=== PATIENT | female | born 1970 | race American Indian/Alaskan Native ===

== ENCOUNTER 2018-01-21 17:09 | Emergency (ER) | payer SELFPAY ==
[2018-01-21 17:28] VITALS: BP 152/84
[2018-01-21] MEDS ORDERED: TYLENOL PO ONE (21:02)
[2018-01-21] MEDS ORDERED: DELTASONE PO ONE (21:02)
[2018-01-21] MEDS ORDERED: REGLAN PO ONE (21:02)
--- NOTE | 2018-01-21 21:07 | Emergency Department Report ---
ED Headache HPI - General Chief Complaint: Headache Stated Complaint: SEVERE MIGRANE Time Seen by Provider: 01/21/18 21:01 - History of Present Illness Initial Comments: 48-year-old Afro[place] female states she fell off of a ground-level deck on Saturday striking her head on the house siding was no LOC patient was immediately ambulatory after incident patient did not seek care the day of accident as she had no pain was no laceration or abrasion no bleeding now presents for headache occipital and soreness there is no swelling no edema no nausea vomiting no blurred vision there is mild photophobia patient is amateur to baseline per patient stay there is been no fever no nosebleed no hemoptysis Timing/Duration: other (3 days) Quality: moderate Head Injury Location: occipital Recent Head Trauma: head trauma > 24 hrs ago Modifying Factors: improves with: rest Associated Symptoms: other (mild photophobia ) Allergies/Adverse Reactions: Allergies No Known Allergies Allergy (Verified 04/22/16 08:24) Home Medications: Ambulatory Orders Dicyclomine [Bentyl] 10 mg PO QID PRN #20 capsule 04/28/16 Famotidine [Pepcid] 20 mg PO QDAY #30 04/28/16 Ondansetron [Zofran Odt] 4 mg PO QID PRN #20 tab.rapdis 04/28/16 Acetaminophen [Acetaminophen TAB] 1,000 mg PO ONCE PRN #30 tablet 01/21/18 Metoclopramide [Reglan TAB] 10 mg PO QID PRN #30 tablet 01/21/18 predniSONE [Deltasone] 40 mg PO ONCE 5 Days #10 tablet 01/21/18 ED Review of Systems ROS: Stated complaint: SEVERE MIGRANE Other details as noted in HPI Constitutional: denies: chills, fever Eyes: denies: eye pain, eye discharge, vision change ENT: denies: ear pain, throat pain Respiratory: denies: cough, shortness of breath, wheezing Cardiovascular: denies: chest pain, palpitations Endocrine: no symptoms reported Gastrointestinal: denies: abdominal pain, nausea, diarrhea Genitourinary: denies: urgency, dysuria, discharge Musculoskeletal: denies: back pain, joint swelling, arthralgia Skin: denies: rash, lesions Neurological: as per HPI, headache. denies: weakness, numbness, paresthesias, confusion, abnormal gait, vertigo Psychiatric: denies: anxiety, depression Hematological/Lymphatic: denies: easy bleeding, easy bruising ED Past Medical Hx - Past Medical History Hx Hypertension: Yes (with preg) Additional medical history: ulcers - Surgical History Additional Surgical History: gastric bypass 06/2011. c/s x 1 - Social History Smoking Status: Never Smoker Substance Use Type: Alcohol - Medications Home Medications: Home Medications Medication Instructions Recorded Confirmed Last Taken Type Dicyclomine [Bentyl] 10 mg PO QID PRN #20 capsule 04/28/16 Unknown Rx Famotidine [Pepcid] 20 mg PO QDAY #30 04/28/16 Unknown Rx Ondansetron [Zofran Odt] 4 mg PO QID PRN #20 tab.rapdis 04/28/16 Unknown Rx Acetaminophen [Acetaminophen TAB] 1,000 mg PO ONCE PRN #30 tablet 01/21/18 Unknown Rx Metoclopramide [Reglan TAB] 10 mg PO QID PRN #30 tablet 01/21/18 Unknown Rx predniSONE [Deltasone] 40 mg PO ONCE 5 Days #10 tablet 01/21/18 Unknown Rx ED Physical Exam - General Limitations: No Limitations General appearance: alert, in no apparent distress - Head Head exam: Present: normocephalic, normal inspection - Expanded Head Exam Expanded Head exam: Absent: laceration, abrasion, contusion, hematoma, racoon eyes, gambino's sign, general tenderness, tenderness of temporal artery, CSF rhinorrhea - Eye Eye exam: Present: normal appearance, PERRL, EOMI. Absent: conjunctival injection, nystagmus, periorbital swelling, periorbital tenderness Pupils: Present: normal accommodation - Expanded Eye Exam Expanded Eyelids: Normal Inspection: Left Pupils: Regular, Round: Bilateral, Reactive: Bilateral Sclera/Conjunctival: Normal Inspection: Bilateral Anterior chamber: Normal Inspection: Bilateral Visual acuity (R) = 20/: 30 Visual acuity (L) = 20/: 30 - ENT ENT exam: Present: normal orophraynx, mucous membranes moist, TM's normal bilaterally, normal external ear exam - Neck Neck exam: Present: normal inspection, full ROM. Absent: tenderness, meningismus, lymphadenopathy, thyromegaly - Respiratory Respiratory exam: Present: normal lung sounds bilaterally. Absent: respiratory distress - Cardiovascular Cardiovascular Exam: Present: regular rate, normal rhythm. Absent: systolic murmur, diastolic murmur, rubs, gallop - GI/Abdominal GI/Abdominal exam: Present: soft, normal bowel sounds - Rectal Rectal exam: Present: deferred - Extremities Exam Extremities exam: Present: normal inspection - Back Exam Back exam: Present: normal inspection - Neurological Exam Neurological exam: Present: alert, oriented X3, CN II-XII intact, normal gait, reflexes normal. Absent: motor sensory deficit - Psychiatric Psychiatric exam: Present: normal affect, normal mood - Skin Skin exam: Present: warm, dry, intact, normal color. Absent: rash ED Course Vital Signs 01/21/18 17:24 Temperature 98.5 F Pulse Rate 78 Respiratory 16 Rate Blood Pressure 152/84 O2 Sat by Pulse 100 Oximetry ED Medical Decision Making - Medical Decision Making This is a status post minor head injury there is no swelling or abrasion no laceration or hematoma no crepitus no step-off no posterior lateral neck pain it is supple neck is supple range of motion is intact without restriction patient's PERRLA EOMI conjunctivae are clear there is no nosebleed no oral blood no ear canal blood patient states pain is 4/10 aching exacerbated by movement and palpation relief by rest patient is A/O 3 and a toilet steady gait plan Tylenol Reglan Benadryl when necessary headache follow with PCP in 2- 3 days return to ED should symptoms worsen I nausea vomiting blurred vision had swelling patient verbalized understanding and agreement was signed will be DC'd home in stable condition at this time Critical care attestation.: If time is entered above; I have spent that time in minutes in the direct care of this critically ill patient, excluding procedure time. ED Disposition Clinical Impression: Headache Qualifiers: Headache type: unspecified Headache chronicity pattern: acute headache Intractability: not intractable Qualified Code(s): R51 - Headache Minor head injury without loss of consciousness Qualifiers: Encounter type: initial encounter Qualified Code(s): S09.90XA - Unspecified injury of head, initial encounter Disposition: DC-01 TO HOME OR SELFCARE Is pt being admited?: No Does the pt Need Aspirin: No Condition: Good Instructions: Minor Head Injury (ED), Acute Headache (ED) Prescriptions: Acetaminophen [Acetaminophen TAB] 1,000 mg PO ONCE PRN #30 tablet PRN Reason: Headache Metoclopramide [Reglan TAB] 10 mg PO QID PRN #30 tablet PRN Reason: Headache predniSONE [Deltasone] 40 mg PO ONCE 5 Days #10 tablet Referrals: PRIMARY CARE,MD [Primary Care Provider] - 3-5 Days Forms: Work/School Release Form(ED) Time of Disposition: 21:14
== END 2018-01-21 21:24 | disposition home or self-care (01) ==
LOC: ED 17:09
DX: S09.90XA Unspecified injury of head, initial encounter (principal); I10 Essential (primary) hypertension; Z79.899 Other long term (current) drug therapy; W17.89XA Other fall from one level to another, initial encounter; Y93.89 Activity, other specified; Y99.8 Other external cause status; Y92.89 Other specified places as the place of occurrence of the external cause
CPT/HCPCS: 99282; J7512

== ENCOUNTER 2020-09-17 23:45 | Emergency (ER) | payer SELFPAY ==
--- NOTE | 2020-09-18 04:08 | Emergency Department Report ---
ED ENT HPI - General Chief complaint: Dental/Oral Stated complaint: MOUTH PAIN/SWOLLEN JAW Time Seen by Provider: 09/18/20 03:53 Source: patient Mode of arrival: Ambulatory Limitations: No Limitations - History of Present Illness Initial comments: Patient is a 50-year-old female presents emergency room with complaints of left upper dental pain that began 3 days ago. She states that she has not seen a dentist in approximately 3 years. She states that she was advised she had cavities at that time. She states that she has noticed a small amount of s welling to the face. She states that it is causing her to have sore throat and ear pain. She denies any fever, nausea, vomiting, diarrhea, difficulty swallowing, difficulty breathing. She has a past medical history of hypertension, she has not seen a primary care doctor in 3 years, she states she believes she was previously on some medication before but does not know what the name was. No allergies to medications. She is postmenopausal. - Related Data Previous Rx's Medication Instructions Recorded Last Taken Type Dicyclomine [Bentyl] 10 mg PO QID PRN #20 capsule 04/28/16 Unknown Rx Famotidine [Pepcid] 20 mg PO QDAY #30 04/28/16 Unknown Rx Ondansetron [Zofran Odt] 4 mg PO QID PRN #20 tab.rapdis 04/28/16 Unknown Rx Acetaminophen [Acetaminophen TAB] 1,000 mg PO ONCE PRN #30 tablet 01/21/18 Unknown Rx Metoclopramide [Reglan TAB] 10 mg PO QID PRN #30 tablet 01/21/18 Unknown Rx predniSONE [Deltasone] 40 mg PO ONCE 5 Days #10 tablet 01/21/18 Unknown Rx Chlorhexidine Mouthwash [Peridex] 15 ml MM BID #1 bottle 09/18/20 Unknown Rx Naproxen [EC-Naprosyn] 500 mg PO BID PRN #14 tablet. 09/18/20 Unknown Rx Penicillin Vk [Veetids TAB] 500 mg PO QID 7 Days #56 tablet 09/18/20 Unknown Rx amLODIPine 10 mg PO DAILY #30 tab 09/18/20 Unknown Rx Allergies Allergy/AdvReac Type Severity Reaction Status Date / Time No Known Allergies Allergy Verified 04/22/16 08:24 ED Dental HPI - General Chief complaint: Dental/Oral Stated complaint: MOUTH PAIN/SWOLLEN JAW Time Seen by Provider: 09/18/20 03:53 Source: patient Mode of arrival: Ambulatory Limitations: No Limitations - Related Data Previous Rx's Medication Instructions Recorded Last Taken Type Dicyclomine [Bentyl] 10 mg PO QID PRN #20 capsule 04/28/16 Unknown Rx Famotidine [Pepcid] 20 mg PO QDAY #30 04/28/16 Unknown Rx Ondansetron [Zofran Odt] 4 mg PO QID PRN #20 tab.rapdis 04/28/16 Unknown Rx Acetaminophen [Acetaminophen TAB] 1,000 mg PO ONCE PRN #30 tablet 01/21/18 Unknown Rx Metoclopramide [Reglan TAB] 10 mg PO QID PRN #30 tablet 01/21/18 Unknown Rx predniSONE [Deltasone] 40 mg PO ONCE 5 Days #10 tablet 01/21/18 Unknown Rx Chlorhexidine Mouthwash [Peridex] 15 ml MM BID #1 bottle 09/18/20 Unknown Rx Naproxen [EC-Naprosyn] 500 mg PO BID PRN #14 tablet. 09/18/20 Unknown Rx Penicillin Vk [Veetids TAB] 500 mg PO QID 7 Days #56 tablet 09/18/20 Unknown Rx amLODIPine 10 mg PO DAILY #30 tab 09/18/20 Unknown Rx Allergies Allergy/AdvReac Type Severity Reaction Status Date / Time No Known Allergies Allergy Verified 04/22/16 08:24 ED Review of Systems ROS: Stated complaint: MOUTH PAIN/SWOLLEN JAW Other details as noted in HPI Comment: All other systems reviewed and negative ED Past Medical Hx - Past Medical History Previous Medical History?: Yes Hx Hypertension: Yes (with preg) Additional medical history: ulcers - Surgical History Past Surgical History?: Yes Additional Surgical History: gastric bypass 06/2011. c/s x 1 - Social History Smoking Status: Never Smoker Substance Use Type: None - Medications Home Medications: Home Medications Medication Instructions Recorded Confirmed Last Taken Type Dicyclomine [Bentyl] 10 mg PO QID PRN #20 capsule 04/28/16 Unknown Rx Famotidine [Pepcid] 20 mg PO QDAY #30 04/28/16 Unknown Rx Ondansetron [Zofran Odt] 4 mg PO QID PRN #20 tab.rapdis 04/28/16 Unknown Rx Acetaminophen [Acetaminophen TAB] 1,000 mg PO ONCE PRN #30 tablet 01/21/18 Unknown Rx Metoclopramide [Reglan TAB] 10 mg PO QID PRN #30 tablet 01/21/18 Unknown Rx predniSONE [Deltasone] 40 mg PO ONCE 5 Days #10 tablet 01/21/18 Unknown Rx Chlorhexidine Mouthwash [Peridex] 15 ml MM BID #1 bottle 09/18/20 Unknown Rx Naproxen [EC-Naprosyn] 500 mg PO BID PRN #14 tablet. 09/18/20 Unknown Rx Penicillin Vk [Veetids TAB] 500 mg PO QID 7 Days #56 tablet 09/18/20 Unknown Rx amLODIPine 10 mg PO DAILY #30 tab 09/18/20 Unknown Rx ED Physical Exam - General Limitations: No Limitations General appearance: alert, in no apparent distress - Head Head exam: Present: atraumatic, normocephalic - Eye Eye exam: Present: normal appearance - ENT ENT exam: Present: normal orophraynx (No trismus, no muffled voice, no submandibular edema), mucous membranes moist, TM's normal bilaterally, normal external ear exam, other (very poor dentition, multiple areas of dental carries/dental decay and missing teeth, there is a prostetic device in place, there is induration of the left upper gumline where several carries are present, there is trace edema of the left upper face, uvula is midline, no uvular edema or deviation) - Respiratory Respiratory exam: Absent: respiratory distress, accessory muscle use - Neurological Exam Neurological exam: Present: alert, oriented X3 - Psychiatric Psychiatric exam: Present: normal affect, normal mood - Skin Skin exam: Present: warm, dry, intact ED Course Vital Signs 09/18/20 09/18/20 02:21 04:44 Temperature 98.3 F 98.2 F Pulse Rate 84 78 Respiratory 18 16 Rate Blood Pressure 188/109 Blood Pressure 190/105 [Left] O2 Sat by Pulse 100 99 Oximetry ED Medical Decision Making - Lab Data Vital Signs 09/18/20 09/18/20 02:21 04:44 Temperature 98.3 F 98.2 F Pulse Rate 84 78 Respiratory 18 16 Rate Blood Pressure 188/109 Blood Pressure 190/105 [Left] O2 Sat by Pulse 100 99 Oximetry - Medical Decision Making Patient is a 50-year-old female presents emergency room with complaints of left upper dental pain that began 3 days ago. She states that she has not seen a dentist in approximately 3 years. She states that she was advised she had cavities at that time. She states that she has noticed a small amount of swelling to the face. She states that it is causing her to have sore throat and ear pain. She denies any fever, nausea, vomiting, diarrhea, difficulty swallowing, difficulty breathing. She has a past medical history of hypertension, she has not seen a primary care doctor in 3 years, she states she believes she was previously on some medication before but does not know what the name was. No allergies to medications. She is postmenopausal. Vitals with elevated blood pressure, otherwise vitals are normal. Patient has history of chronic hypertension has not been on medications for 3 years, she does not know what she previously took. Patient is not having any symptoms related to her elevated blood pressure, she is asymptomatic. The up-to-date medical literature does not recommend emergently lowering asymptomatic elevated blood pressure. Patient will be given a prescription for 5 mg of amlodipine, discussed the importance of primary care follow-up, discussed low-sodium diet, discussed increasing water intake, discussed exercise and weight management discussed to keep blood pressure log and take this to the primary care doctor. On exam:very poor dentition, multiple areas of dental carries/dental decay and missing teeth, there is a prostetic device in place, there is induration of the left upper gumline where several carries are present, there is trace edema of the left upper face, uvula is midline, no uvular edema or deviation, No trismus, no muffled voice, no submandibular edema. Symptoms and examination appear consistent with dental caries and dental abscess. No clinical signs of facial cellulitis, facial abscess, Mario Alberto's at this time. Patient given prescription for naproxen, chlorhexidine mouthwash, penicillin VK. Advised patient Please take medication as prescribed. Gargle with warm salt water. Increase your water intake. Follow-up with a dentist. Follow-up with your primary care doctor regarding elevation in your blood pressure. Keep a blood pressure log and take this to the primary care doctor. Eat a low-sodium diet. Incorporate 30 to 60 minutes of daily exercise and consider weight management. Return to emergency room for any new or worsening symptoms. Critical care attestation.: If time is entered above; I have spent that time in minutes in the direct care of this critically ill patient, excluding procedure time. ED Disposition Clinical Impression: Dental caries, Dental abscess, Dentalgia, Non compliance w medication regimen Hypertension Qualifiers: Hypertension type: essential hypertension Qualified Code(s): I10 - Essential (primary) hypertension Disposition: TO HOME OR SELFCARE Is pt being admited?: No Does the pt Need Aspirin: No Condition: Stable Instructions: Dental Abscess, [id number], Low-Sodium Eating Plan, Managing Your Hypertension, Hypertension (ED) Additional Instructions: Please take medication as prescribed. Gargle with warm salt water. Increase your water intake. Follow-up with a dentist. Follow-up with your primary care doctor regarding elevation in your blood pressure. Keep a blood pressure log and take this to the primary care doctor. Eat a low-sodium diet. Incorporate 30 to 60 minutes of daily exercise and consider weight management. Return to emergency room for any new or worsening symptoms. Prescriptions: amLODIPine 10 mg PO DAILY #30 tab Naproxen [EC-Naprosyn] 500 mg PO BID PRN #14 tablet.dr ACOSTA Reason: pain Chlorhexidine Mouthwash [Peridex] 15 ml MM BID #1 bottle Penicillin Vk [Veetids TAB] 500 mg PO QID 7 Days #56 tablet Referrals: PRIMARY CAREMD [Primary Care Provider] - 3-5 Days AZUL BLACKBURN MD [Staff Physician] - 3-5 Days [facility] [Provider Group] - 3-5 Days [facility] [Outside] - 3-[address] [facility] [Outside] - 3-5 Days [facility] [Outside] - 3-5 Days [facility], [LAB/CONTRACT] - 3-5 Days [facility] [Outside] - 3-5 Days Forms: Work/School Release Form(ED) Time of Disposition: 04:07 Print Language: ANDORRAN
[2020-09-18 05:52] VITALS: BP 190/105
== END 2020-09-18 04:49 | disposition home or self-care (01) ==
LOC: ED 23:45
DX: K02.9 Dental caries, unspecified (principal); K04.7 Periapical abscess without sinus; K08.89 Other specified disorders of teeth and supporting structures; I10 Essential (primary) hypertension; Z91.14 Patient's other noncompliance with medication regimen; Z98.890 Other specified postprocedural states; Z79.899 Other long term (current) drug therapy
CPT/HCPCS: 99282